=== PATIENT | female | born 1970 | race Caucasian/White ===

== ENCOUNTER 2017-11-13 02:57 | Emergency (ER) | payer OTHER ==
[2017-11-13 03:18] VITALS: BP 140/72; PULSE 92; TEMP 97.9; BMI 28.3
[2017-11-13] MEDS ORDERED: PANTOPRAZOLE 40 MG TABLET (FP) PO ONE (03:30)
--- NOTE | 2017-11-13 03:30 | PDOC ---
History of Present Illness - General Exam Limitations: No Limitations - History of Present Illness Initial Comments: 11/13/17 03:52 47 year old female with no significant past medical history presents with 1 day of sore throat. States pain is moderate and burning in nature. No fever or chills. No ear pain. No cigarette smoking. <DanawolfgangcheriCindy - Last Filed: 11/13/17 03:52> - General History Source: Patient <Serafin Hammond - Last Filed: 11/13/17 19:16> - General Chief Complaint: Sore Throat Stated Complaint: VOMITING Time Seen by Provider: 11/13/17 03:28 Past History <NuviaCindy - Last Filed: 11/13/17 03:52> - Past Medical History Asthma: Yes COPD: No Psychiatric Problems: Yes - Immunization History Immunization Up to Date: Yes - Suicide/Smoking/Psychosocial Hx Smoking History: Never smoked Have you smoked in the past 12 months: No Information on smoking cessation initiated: No Hx Alcohol Use: No Drug/Substance Use Hx: No Substance Use Type: None <Serafin Hammond - Last Filed: 11/13/17 19:16> - Past Medical History Allergies/Adverse Reactions: Allergies Allergy/AdvReac Type Severity Reaction Status Date / Time No Known Allergies Allergy Verified 11/13/17 03:15 Home Medications: Ambulatory Orders Oseltamivir Phosphate [Tamiflu -] 75 mg PO BID #10 capsule 01/23/16 Diphenhydramine HCl [Benadryl -] 25 mg PO ONCE #30 capsule 01/24/16 predniSONE [Deltasone -] 40 mg PO DAILY #14 tablet 01/24/16 Review of Systems - Review of Systems Able to Perform ROS?: Yes Comments:: 11/13/17 03:53 GENERAL/CONSTITUTIONAL: No fever or chills. No weakness. HEAD, EYES, EARS, NOSE AND THROAT: +sore throat. No change in vision. No ear pain or discharge. CARDIOVASCULAR: No chest pain or shortness of breath. RESPIRATORY: No cough, wheezing, or hemoptysis. GASTROINTESTINAL: No nausea, vomiting, diarrhea or constipation. GENITOURINARY: No dysuria, frequency, or change in urination. MUSCULOSKELETAL: No joint or muscle swelling or pain. No neck or back pain. SKIN: No rash NEUROLOGIC: No headache, vertigo, loss of consciousness, or change in strength/ sensation. ENDOCRINE: No increased thirst. No abnormal weight change. HEMATOLOGIC/LYMPHATIC: No anemia, easy bleeding, or history of blood clots. ALLERGIC/IMMUNOLOGIC: No hives or skin allergy. <Cindy Pedersen - Last Filed: 11/13/17 03:52> *Physical Exam - Vital Signs Last Vital Signs Temp Pulse Resp BP Pulse Ox 97.9 F 92 H 18 140/72 100 11/13/17 03:16 11/13/17 03:16 11/13/17 03:16 11/13/17 03:16 11/13/17 03:16 - Physical Exam Comments: 11/13/17 03:53 GENERAL: Awake, alert, and fully oriented, in no acute distress HEAD: No signs of trauma EYES: PERRLA, EOMI, sclera anicteric, conjunctiva clear ENT: Auricles normal inspection, nares patent. Moist mucosa NECK: Normal ROM, supple, no JVD, or masses LUNGS: Breath sounds equal, clear to auscultation bilaterally. No wheezes, and no crackles HEART: Regular rate and rhythm, normal S1 and S2, no murmurs, rubs or gallops ABDOMEN: Soft, nontender, normoactive bowel sounds. No guarding, no rebound. No masses EXTREMITIES: Normal range of motion, no edema. No clubbing or cyanosis. No cords, erythema, or tenderness NEUROLOGICAL: Alert and oriented x 3. Moves all extremities. Face is symmetric. SKIN: Warm, Dry, normal turgor, no rashes or lesions noted. <Cindy Pedersen - Last Filed: 11/13/17 03:52> - Vital Signs Last Vital Signs Temp Pulse Resp BP Pulse Ox 97.9 F 92 H 18 140/72 100 11/13/17 03:16 11/13/17 03:16 11/13/17 03:16 11/13/17 03:16 11/13/17 03:16 <Serafin Hammond - Last Filed: 11/13/17 19:16> ED Treatment Course - Medications Given in the ED: ED Medications Discontinued Medications Generic Name Dose Route Start Last Admin Trade Name Freq PRN Reason Stop Dose Admin Pantoprazole Sodium 40 mg 11/13/17 03:30 11/13/17 03:42 Protonix - PO 11/13/17 03:31 40 mg ONCE ONE Administration <Cindy Pedersen - Last Filed: 11/13/17 03:52> Medical Decision Making - Medical Decision Making 11/13/17 19:16 Dr. Hammond: The scribe's documentation has been prepared under my direction and personally reviewed by me in its entirery. I confirm that the note above accurately reflects all work, treatment, procedures, and medical decision making performed by me. <Serafin Hammond - Last Filed: 11/13/17 19:16> *DC/Admit/Observation/Transfer - Attestations Scribe Attestion: 11/13/17 03:53 Documentation prepared by Cindy Pedersen, acting as medical driver for Serafin Hammond DO. <Cindy Pedersen - Last Filed: 11/13/17 03:52> - Discharge Dispostion Admit: No <Serafin Hammond - Last Filed: 11/13/17 19:16> Diagnosis at time of Disposition: Sore throat - Discharge Dispostion Disposition: HOME Condition at time of disposition: Stable - Patient Instructions Printed Discharge Instructions: Sore Throat, DI for Viral Pharyngitis Print Language: ENGLISH
[2017-11-13] MEDS ORDERED: PANTOPRAZOLE 40 MG TABLET (FP) ONE (03:41)
== END 2017-11-13 05:10 | disposition home or self-care (01) ==
LOC: JER 02:57
DX: J02.9 Acute pharyngitis, unspecified (principal)
CPT/HCPCS: 87070; 87430; 99281-25

== ENCOUNTER 2021-08-21 01:28 | Emergency (ER) | payer OTHER ==
[2021-08-21 01:42] VITALS: BP 146/76; TEMP 99.8; BMI 31.2
[2021-08-21] MEDS ORDERED: ALBUTEROL SO4 2.5/IPRATROPIUM 0.5 INH SOL 3 ML VIAL.NEB. NEB ONE ×2 (01:45→01:50)
[2021-08-21] MEDS ORDERED: DEXAMETHASONE SOD PHOSPHATE 10 MG/1 ML VIAL IM ONE (01:54)
[2021-08-21] MEDS ORDERED: DEXAMETHASONE SOD PHOSPHATE 10 MG/1 ML VIAL ONE (01:56)
[2021-08-21] MEDS ORDERED: ALBUTEROL SO4 0.083% IH SOL 2.5 MG/3 ML VIAL.NEB. NEB ONE ×2 (02:56→03:08)
[2021-08-21] MEDS ORDERED: ACETAMINOPHEN 325 MG TABLET (FP) PO ONE (03:32)
[2021-08-21] MEDS ORDERED: ACETAMINOPHEN 325 MG TABLET (FP) ONE (03:41)
[2021-08-21 05:07] VITALS: PULSE 110
== END 2021-08-21 05:19 | disposition left against medical advice (07) ==
LOC: JER 01:28
PROC: 3E023GC Introduction of Other Therapeutic Substance into Muscle, Percutaneous Approach (ICD-10-PCS; principal; 2021-08-21)
PROC: 3E0F7GC Introduction of Other Therapeutic Substance into Respiratory Tract, Via Natural or Artificial Opening (ICD-10-PCS; 2021-08-21)
DX: J45.909 Unspecified asthma, uncomplicated (principal)
CPT/HCPCS: 71045-TC-FY; 99284-25; C9803; J1100; U0003; U0005

== ENCOUNTER 2021-08-30 07:01 | Emergency (ER) | payer OTHER ==
[2021-08-30 08:02] VITALS: BP 117/76; PULSE 90; TEMP 97.8; BMI 32.2
[2021-08-30] MEDS ORDERED: KETOROLAC TROMETHAMINE 30 MG/1 ML VIAL IM ONE (08:29)
[2021-08-30] MEDS ORDERED: diazePAM 5 MG TABLET PO ONE (08:29)
[2021-08-30] MEDS ORDERED: diazePAM 5 MG TABLET ONE (08:30)
[2021-08-30] MEDS ORDERED: KETOROLAC TROMETHAMINE 30 MG/1 ML VIAL ONE (08:30)
== END 2021-08-30 09:56 | disposition home or self-care (01) ==
LOC: JER 07:01
PROC: 3E0233Z Introduction of Anti-inflammatory into Muscle, Percutaneous Approach (ICD-10-PCS; principal; 2021-08-30)
DX: M54.2 Cervicalgia (principal)
CPT/HCPCS: 99284-25

== ENCOUNTER 2021-08-31 09:22 | Emergency (ER) | payer OTHER ==
[2021-08-31 09:54] VITALS: BP 113/78; PULSE 90; TEMP 98.9; BMI 27.3
[2021-08-31] MEDS ORDERED: ACETAMINOPHEN 325 MG TABLET (FP) PO ONE (12:53)
[2021-08-31] MEDS ORDERED: LIDOCAINE 5% TOPICAL PATCH TP ONE (12:53)
[2021-08-31] MEDS ORDERED: KETOROLAC TROMETHAMINE 15 MG/ML VIAL IM ONE (13:11)
[2021-08-31] MEDS ORDERED: KETOROLAC TROMETHAMINE 30 MG/1 ML VIAL ONE (13:31)
[2021-08-31] MEDS ORDERED: LIDOCAINE 5% TOPICAL PATCH ONE (13:31)
[2021-08-31] MEDS ORDERED: ACETAMINOPHEN 325 MG TABLET (FP) ONE (13:31)
[2021-08-31] MEDS ORDERED: LIDOCAINE PATCH REMOVAL MC ONE (22:00)
== END 2021-08-31 17:33 | disposition home or self-care (01) ==
LOC: JER 09:22
PROC: 3E023GC Introduction of Other Therapeutic Substance into Muscle, Percutaneous Approach (ICD-10-PCS; principal; 2021-08-31)
DX: S16.1XXA Strain of muscle, fascia and tendon at neck level, initial encounter (principal); M62.838 Other muscle spasm; Y99.9 Unspecified external cause status
CPT/HCPCS: 72125-TC; 99284-25

== ENCOUNTER 2023-08-31 12:03 | Emergency (ER) | payer OTHER ==
[2023-08-31 12:16] VITALS: BP 137/69; PULSE 85; RESP 18; TEMP 98.7; BMI 30.9
[2023-08-31] MEDS ORDERED: ACETAMINOPHEN 500 MG TABLET (FP) PO ONE (12:20)
[2023-08-31] MEDS ORDERED: ACETAMINOPHEN 500 MG TABLET (FP) ONE (12:23)
[2023-08-31] MEDS ORDERED: DIPHTH,PERTUSS(ACELL),TET 0.5 ML DISP.SYRIN IM ONE ×3 (12:28→13:12)
== END 2023-08-31 13:15 | disposition home or self-care (01) ==
LOC: JER 12:03
PROC: 0HQ1XZZ Repair Face Skin, External Approach (ICD-10-PCS; principal; 2023-08-31)
DX: S01.81XA Laceration without foreign body of other part of head, initial encounter (principal); R42 Dizziness and giddiness; W22.09XA Striking against other stationary object, initial encounter; Y92.512 Supermarket, store or market as the place of occurrence of the external cause
CPT/HCPCS: 99283-25

== ENCOUNTER 2023-12-23 10:48 | Observation (INO) | payer OTHER ==
[2023-12-23 13:08] LABS: BASO % 0.8 % (0-2.0); EOS % 5.3 % (0-4.5); HEMATOCRIT 20.1 % (32.4-45.2); LYMPH % 24.7 % (8-40); MCHC 30.2 g/dl (32.0-36.0); MEAN CELL VOLUME 64.5 fl (80-96); MEAN PLT VOLUME 7.5 fl (7.5-11.1); MONO % 7.4 % (3.8-10.2); NEUT % 61.8 % (42.8-82.8); PLATELET COUNT 282 10^3/uL (134-434); RBC 3.12 M/mm3 (3.60-5.2); RDW 17.2 % (11.6-15.6)
[2023-12-23 13:11] LABS: MCH 19.5 pg (25.7-33.7)
[2023-12-23 13:16] LABS: HEMOGLOBIN 6.1 GM/dL (10.7-15.3)
[2023-12-23 13:31] LABS: POTASSIUM 3.9 mmol/L (3.5-5.1)
[2023-12-23 13:34] LABS: ALBUMIN 3.5 g/dl (3.4-5.0); BLOOD UREA NITROGEN 7.5 mg/dL (7-18)
[2023-12-23 13:37] LABS: CREATININE 0.6 mg/dL (0.55-1.3)
[2023-12-23 13:39] LABS: TOT PROT 7.1 g/dl (6.4-8.2)
[2023-12-23 14:26] LABS: ANISOCYTOSIS 1+
[2023-12-23 15:49] VITALS: BMI 31.6
[2023-12-23 15:56] LABS: RETICULOCYTES 3.25 % (0.5-1.5)
[2023-12-23 18:13] VITALS: RESP 18
[2023-12-23 22:04] LABS: HEMATOCRIT 23.5 % (32.4-45.2); HEMOGLOBIN 7.4 GM/dL (10.7-15.3); MCH 21.4 pg (25.7-33.7); MCHC 31.4 g/dl (32.0-36.0); MEAN CELL VOLUME 68.1 fl (80-96); MEAN PLT VOLUME 7.5 fl (7.5-11.1); PLATELET COUNT 305 10^3/uL (134-434); RBC 3.45 M/mm3 (3.60-5.2); RDW 20.6 % (11.6-15.6); WHITE BLOOD COUNT 6.2 K/mm3 (4.0-10.0)
[2023-12-24] MEDS: LACTATED RINGERS SOLUTION 1,000 ML/1,000 ML INFUS.BAG IV SCH (05:55)
[2023-12-24 09:28] LABS: MCH 22.3 pg (25.7-33.7); MEAN CELL VOLUME 69.6 fl (80-96); MEAN PLT VOLUME 7.6 fl (7.5-11.1); PLATELET COUNT 297 10^3/uL (134-434); RBC 4.02 M/mm3 (3.60-5.2); RDW 23.3 % (11.6-15.6)
[2023-12-24 09:56] LABS: POTASSIUM 3.7 mmol/L (3.5-5.1)
[2023-12-24 10:02] LABS: ALBUMIN 3.6 g/dl (3.4-5.0); BLOOD UREA NITROGEN 12.1 mg/dL (7-18); CALCIUM 8.5 mg/dL (8.5-10.1); MAGNESIUM 1.9 mg/dL (1.8-2.4)
[2023-12-24 10:05] LABS: CREATININE 0.7 mg/dL (0.55-1.3); PHOSPHOROUS 3.3 mg/dL (2.5-4.9)
[2023-12-24 10:06] LABS: TOT PROT 6.9 g/dl (6.4-8.2)
[2023-12-24 10:12] LABS: BILIRUBIN,TOTAL 5.3 mg/dL (0.2-1)
[2023-12-24] MEDS: IRON SUCROSE INJECTION 200 MG in SODIUM CHLORIDE 100 ML IVPB ONE (14:25)
[2023-12-24 15:18] VITALS: BP 129/65; PULSE 90; TEMP 97.4
[2023-12-24] MEDS ORDERED: OLANZapine 10 MG TABLET PO SCH (22:00)
[2023-12-25] MEDS ORDERED: FERROUS SO4 325 MG TABLET (FP) PO SCH (10:00)
== END 2023-12-24 17:40 | disposition home or self-care (01) ==
LOC: JER 10:48 → JERBED 13:45 → J5S 14:56
PROVIDERS: ADMIT Internal Medicine; ATTEND Nurse Practitioner Acute Care
PROC: 30233N1 Transfusion of Nonautologous Red Blood Cells into Peripheral Vein, Percutaneous Approach (ICD-10-PCS; principal; 2023-12-23)
PROC: 3E0337Z Introduction of Electrolytic and Water Balance Substance into Peripheral Vein, Percutaneous Approach (ICD-10-PCS; 2023-12-23)
DX: D50.9 Iron deficiency anemia, unspecified (principal); N92.0 Excessive and frequent menstruation with regular cycle; Z29.9 Encounter for prophylactic measures, unspecified
CPT/HCPCS: 36415; 36430; 76830-TC; 80053; 82728; 83540; 83550; 83735; 84100; 84466; 84484; 85025; 85027; 85045; 86850; 86900; 86901; 86922; 93005; 93010; 96361; 96365; 99285-25; G0378; J1756; P9058

== ENCOUNTER 2024-06-15 09:07 | Observation (INO) | payer OTHER ==
[2024-06-15] MEDS ORDERED: DEXAMETHASONE SOD PHOSPHATE 10 MG/1 ML VIAL ONE (09:37)
[2024-06-15] MEDS ORDERED: methylPREDNISolone NA SUCC 125 MG/2 ML VIAL ONE (09:44)
[2024-06-15] MEDS: ALBUTEROL SO4 2.5/IPRATROPIUM 0.5 INH SOL 3 ML VIAL.NEB. NEB SCH (09:45)
[2024-06-15] MEDS: DEXAMETHASONE SOD PHOSPHATE 10 MG/1 ML VIAL PO ONE (10:16)
[2024-06-15] MEDS: methylPREDNISolone NA SUCC 125 MG/2 ML VIAL IVPB ONE (10:16)
[2024-06-15] MEDS ORDERED: ACETAMINOPHEN INJECTION 0 ML ONE (10:17)
[2024-06-15] MEDS: ACETAMINOPHEN 1000 MG/100 ML BAG IVPB ONE (10:18)
[2024-06-15 10:29] LABS: BASO % 0.5 % (0-2.0); EOS % 8.7 % (0-4.5); HEMATOCRIT 36.2 % (32.4-45.2); HEMOGLOBIN 11.6 GM/dL (10.7-15.3); LYMPH % 28.1 % (8-40); MCH 24.3 pg (25.7-33.7); MCHC 32.1 g/dl (32.0-36.0); MEAN CELL VOLUME 75.7 fl (80-96); MEAN PLT VOLUME 7.9 fl (7.5-11.1); MONO % 8.9 % (3.8-10.2); NEUT % 53.8 % (42.8-82.8); PLATELET COUNT 240 10^3/uL (134-434); RBC 4.78 M/mm3 (3.60-5.2); RDW 14.8 % (11.6-15.6)
[2024-06-15 11:06] LABS: CHLORIDE 106 mmol/L (98-107); SODIUM 135 mmol/L (136-145)
[2024-06-15 11:08] LABS: ALBUMIN 3.6 g/dl (3.4-5.0); CALCIUM 8.7 mg/dL (8.5-10.1)
[2024-06-15 11:09] LABS: CO2 24 mmol/L (21-32); GLUCOSE,RANDOM 122 mg/dL (74-106)
[2024-06-15 11:12] LABS: CREATININE 0.8 mg/dL (0.55-1.3); SGOT/AST 87 U/L (15-37)
[2024-06-15 11:13] LABS: BILIRUBIN,TOTAL 1.1 mg/dL (0.2-1)
[2024-06-15 11:15] LABS: ALK PHOS 88 U/L (45-117)
[2024-06-15 11:16] LABS: ANION GAP 5 mmol/L (4-13); POTASSIUM 6.3 mmol/L (3.5-5.1); SGPT/ALT 35 U/L (13-61)
[2024-06-15] MEDS ORDERED: ALBUTEROL SO4 0.083% IH SOL 2.5 MG/3 ML VIAL.NEB. NEB ONE (11:22)
[2024-06-15] MEDS: ALBUTEROL SO4 0.042% IH SOL 1.25 MG/3 ML VIAL.NEB NEB ONE (11:26)
[2024-06-15 13:10] LABS: POTASSIUM 5.6 mmol/L (3.5-5.1)
[2024-06-15 13:11] LABS: CALCIUM 8.6 mg/dL (8.5-10.1)
[2024-06-15 13:15] LABS: CREATININE 0.8 mg/dL (0.55-1.3)
[2024-06-15 16:05] VITALS: RESP 20
[2024-06-15] MEDS: ALBUTEROL SO4 2.5/IPRATROPIUM 0.5 INH SOL 3 ML VIAL.NEB. NEB PRN (19:35)
[2024-06-15] MEDS: ALBUTEROL SO4 0.083% IH SOL 2.5 MG/3 ML VIAL.NEB. NEB PRN (22:45)
[2024-06-16] MEDS: methylPREDNISolone NA SUCC 40 MG/1 ML VIAL IVPUSH SCH (08:10)
[2024-06-16] MEDS: ALBUTEROL SO4 2.5/IPRATROPIUM 0.5 INH SOL 3 ML VIAL.NEB. NEB SCH (08:35)
[2024-06-16 09:35] LABS: BASO % 0.1 % (0-2.0); HEMATOCRIT 34.2 % (32.4-45.2); HEMOGLOBIN 11.4 GM/dL (10.7-15.3); LYMPH % 5.7 % (8-40); MCH 24.5 pg (25.7-33.7); MCHC 33.4 g/dl (32.0-36.0); MEAN CELL VOLUME 73.2 fl (80-96); MEAN PLT VOLUME 8.3 fl (7.5-11.1); MONO % 4.6 % (3.8-10.2); NEUT % 89.6 % (42.8-82.8); PLATELET COUNT 335 10^3/uL (134-434); RBC 4.67 M/mm3 (3.60-5.2); WHITE BLOOD COUNT 16.6 K/mm3 (4.0-10.0)
[2024-06-16 09:43] LABS: CALCIUM 9.4 mg/dL (8.5-10.1)
[2024-06-16 09:44] LABS: BLOOD UREA NITROGEN 14.1 mg/dL (7-18)
[2024-06-16 09:47] LABS: CREATININE 0.7 mg/dL (0.55-1.3)
[2024-06-16 14:22] VITALS: BMI 34.2
[2024-06-17 09:50] LABS: HEMATOCRIT 34.4 % (32.4-45.2); HEMOGLOBIN 11.3 GM/dL (10.7-15.3); MCH 24.3 pg (25.7-33.7); MCHC 32.9 g/dl (32.0-36.0); MEAN CELL VOLUME 73.8 fl (80-96); MEAN PLT VOLUME 8.3 fl (7.5-11.1); PLATELET COUNT 376 10^3/uL (134-434); RBC 4.66 M/mm3 (3.60-5.2); RDW 14.9 % (11.6-15.6); WHITE BLOOD COUNT 19.4 K/mm3 (4.0-10.0)
[2024-06-17 10:58] LABS: POTASSIUM 4.1 mmol/L (3.5-5.1)
[2024-06-17 11:05] LABS: ALBUMIN 3.6 g/dl (3.4-5.0); BLOOD UREA NITROGEN 17.6 mg/dL (7-18); CALCIUM 9.5 mg/dL (8.5-10.1)
[2024-06-17 11:08] LABS: CREATININE 0.8 mg/dL (0.55-1.3)
[2024-06-17 11:09] LABS: PHOSPHOROUS 3.1 mg/dL (2.5-4.9)
[2024-06-17 11:10] LABS: BILIRUBIN,TOTAL 0.7 mg/dL (0.2-1); TOT PROT 7.5 g/dl (6.4-8.2)
[2024-06-17] MEDS ORDERED: ALBUTEROL SO4 2.5/IPRATROPIUM 0.5 INH SOL 3 ML VIAL.NEB. NEB SCH (16:00)
[2024-06-17] MEDS ORDERED: LEVALBUTEROL HCL 0.63 MG/3 ML VIAL.NEB. IH SCH (16:00)
[2024-06-17] MEDS: IPRATROPIUM BR 0.02% 0.5 MG/2.5 ML VIAL.NEB. NEB SCH (18:31)
[2024-06-17] MEDS: LEVALBUTEROL HCL 0.63 MG/3 ML VIAL.NEB. IH SCH (20:05)
[2024-06-17] MEDS ORDERED: BENZOCAINE/MENTH/CETYLPYRD CL 1 EACH LOZENGE MM PRN (23:31)
[2024-06-18] MEDS: methylPREDNISolone NA SUCC 40 MG/1 ML VIAL IVPUSH SCH (09:19)
[2024-06-18 10:59] VITALS: BP 120/73; PULSE 109; TEMP 97.9
== END 2024-06-18 12:24 | disposition home or self-care (01) ==
LOC: JER 09:07 → JERBED 12:00 → J6S 15:08
PROVIDERS: ADMIT Internal Medicine; ATTEND Internal Medicine
PROC: 3E033GC Introduction of Other Therapeutic Substance into Peripheral Vein, Percutaneous Approach (ICD-10-PCS; principal; 2024-06-15)
PROC: 3E0337Z Introduction of Electrolytic and Water Balance Substance into Peripheral Vein, Percutaneous Approach (ICD-10-PCS; 2024-06-15)
DX: J45.901 Unspecified asthma with (acute) exacerbation (principal); D72.10 Eosinophilia, unspecified; D64.9 Anemia, unspecified; F41.9 Anxiety disorder, unspecified; Z29.89 Encounter for other specified prophylactic measures
CPT/HCPCS: 0241U-QW; 36415; 71045-TC-FY; 80048; 80053; 83735; 84100; 85025; 85027; 93005; 93010; 94640; 94761; 96374; 96376; 99285-25; G0378

== ENCOUNTER 2025-02-10 13:34 | Emergency (ER) | payer OTHER ==
[2025-02-10 14:03] VITALS: BP 142/75; PULSE 93; RESP 21; TEMP 99.1; BMI 30.9
[2025-02-10] MEDS ORDERED: predniSONE 20 MG TABLET (UD) ONE (15:08)
[2025-02-10] MEDS: predniSONE 20 MG TABLET (UD) PO ONE (15:11)
[2025-02-10] MEDS: ALBUTEROL SO4 2.5/IPRATROPIUM 0.5 INH SOL 3 ML VIAL.NEB. NEB SCH (15:24)
== END 2025-02-10 16:16 | disposition home or self-care (01) ==
LOC: JER 13:34
PROC: 3E0F7GC Introduction of Other Therapeutic Substance into Respiratory Tract, Via Natural or Artificial Opening (ICD-10-PCS; principal; 2025-02-10)
DX: J45.909 Unspecified asthma, uncomplicated (principal)
CPT/HCPCS: 99283-25